=== PATIENT | female | born 1995 | race Caucasian/White ===

== ENCOUNTER 2017-09-09 20:06 | Emergency (ER) | payer SELFPAY ==
[~2017-09-09] VITALS: Ht 160 cm; Wt 47.0 kg
[~2017-09-09 20:06] MED LIST: CIPR500T4 PO
[2017-09-09 20:16] VITALS: BP 108/66; PULSE 88; RESP 16; TEMP 99.5; O2SAT 100
[2017-09-09 21:00] LABS: BILIRUBIN, URINE NEG (NEG); BLOOD, URINE LARGE (NEG); GLUCOSE,URINE NEG (NEG); KETONE, URINE TRACE mg/dL (NEG); NITRITE,URINE NEG (NEG); PH, URINE 5.5 (5.0-8.5); URINE COLOR BROWN (YELLW/STRAW); URINE LEUKOCYTE ESTERASE NEG (NEG)
[2017-09-09 21:01] LABS: BACTERIA, URINE FEW /hpf; RBC, URINE INNUM /hpf (0-3); WBC, URINE INNUM /hpf (0-5)
[2017-09-09] MEDS ORDERED: CIPR-9 PO (21:27)
[2017-09-09] MEDS ORDERED: DOXY100C PO (21:32)
--- NOTE | 2017-09-09 21:32 | PD ---
HPI Chief Complaint: Complaint Time Seen by Provider: 20:30 Travel History International Travel<30 days: No Contact w/Intl Traveler<30days: No Traveled to known affect area: No History of Present Illness HPI 21-year-old female presents to the emergency department by private transportation in the care of significant other for evaluation of possible urine infection with hematuria. Patient states she has had symptoms for the past couple weeks. Patient states symptoms were not typical of her urinary tract infections therefore was putting off being evaluated. Patient states no vaginal discharge or vaginal bleeding. Patient denies states she has not had a period in 5 years. Patient has history of hydronephrosis hydroureter denies kidney stones recurrent urinary tract infections bipolar disorder asthma ADHD and prior endocarditis. Patient states that she has not felt so well that she has missed getting her methadone and her methadone clinic but denies being an acute opiate withdrawal. Patient admits to prior history of sexually transmitted infection but denies symptoms at this time. PFSH Past Medical History Narrative Medical Bipolar disorder asthma ADHD endocarditis ureteral stricture hydronephrosis; substance abuse; nursing notes reviewed ADHD: Yes Asthma: Yes Autoimmune Disease: No Bipolar Disorder: Yes Anxiety: Yes Depression: Yes Cardiovascular Problems: Yes (ENDOCARDITIS 2012) Chest Pain: Yes Diabetes: No Diminished Hearing: No Gastrointestinal Disorders: No GERD: Yes Genitourinary: Yes (KIDNEY INFECTION) Hepatitis: Yes (C) Musculoskeletal: No Neurologic: No Psychiatric: Yes Respiratory: Yes Immunizations Current: Yes Renal Failure: Yes Thyroid Disease: No Tetanus Vaccination: > 5 Years Influenza Vaccination: No ?: Not Past Surgical History AICD: No Joint Replacement: No Pacemaker: No Other Surgery: No Social History Alcohol Use: Yes Tobacco Use: Yes (1 PPD) Substance Use: Yes (IV DILAUDID, crack ) Allergies-Medications (Allergen,Severity, Reaction): Coded Allergies: cefprozil (Unverified Allergy, Intermediate, RASH FROM CEFZIL (CEFPROZIL) , 01/24/17) STS FR CHILDHOOD Reported Meds & Prescriptions Reported Meds & Active Scripts Active Doxycycline Hyclate 100 Mg Cap 100 Mg PO BID Cipro (Ciprofloxacin HCl) 500 Mg Tab 500 Mg PO BID Narrative Medication methadone Review of Systems Except as stated in HPI: all other systems reviewed are Neg General / Constitutional: No: Fever, Chills HENT: No: Congestion Cardiovascular: No: Chest Pain or Discomfort Respiratory: No: Shortness of Breath Gastrointestinal: No: Nausea, Vomiting, Abdominal Pain Genitourinary: Positive: Frequency, Hematuria, No: Vaginal Bleeding Musculoskeletal: No: Myalgias, Arthralgias Skin: No Rash Neurologic: No: Weakness Psychiatric: No: Anxiety Hematologic/Lymphatic: No: Lymph Node Enlargement Physical Exam Narrative GENERAL: Well-developed well-nourished female in no acute distress no respiratory distress SKIN: Warm and dry. HEAD: Normocephalic. EYES: No scleral icterus. No injection or drainage. NECK: Supple, trachea midline. No JVD or lymphadenopathy. CARDIOVASCULAR: Regular rate and rhythm without murmurs, gallops, or rubs. RESPIRATORY: Breath sounds equal bilaterally. No accessory muscle use. GASTROINTESTINAL: Abdomen soft, non-tender, nondistended. Pelvic exam: Refused by patient MUSCULOSKELETAL: No cyanosis, or edema. BACK: Nontender without obvious deformity. No CVA tenderness. Data Data Last Documented VS Vital Signs Date Time Temp Pulse Resp B/P (MAP) Pulse Ox O2 Delivery O2 Flow Rate FiO2 09/09/17 20:16 99.5 88 16 108/66 (80) 100 Orders Orders Urinalysis - C+S If Indicated (09/09/17 20:30) Ed Urine Pregnancytest Poc (09/09/17 20:30) Gc And Chlamydia Pcr (09/09/17 20:30) Urine Culture (09/09/17 20:45) Doxycycline (Vibramycin) (09/09/17 21:45) Ed Discharge Order (09/09/17 21:34) Labs Laboratory Tests Test 09/09/17 20:45 Urine Color BROWN Urine Turbidity CLOUDY Urine pH 5.5 Urine Specific [place] GREATER/EQUAL 1.030 Urine Protein 100 mg/dL Urine Glucose (UA) NEG mg/dL Urine Ketones TRACE mg/dL Urine Occult Blood LARGE Urine Nitrite NEG Urine Bilirubin NEG Urine Urobilinogen 1.0 MG/DL Urine Leukocyte Esterase NEG Urine RBC INNUM /hpf Urine WBC INNUM /hpf Urine Squamous Epithelial Cells 6-8 /hpf Urine Bacteria FEW /hpf Microscopic Urinalysis Comment CULTURE INDICATED Chlamydia trachomatis DNA (PCR) NOT DETECTED Neisseria gonorrhoeae DNA (PCR) NOT DETECTED MDM Medical Decision Making Medical Screen Exam Complete: Yes Emergency Medical Condition: Yes Medical Record Reviewed: Yes Interpretation(s) poc hcg: negative ua: White blood cells red blood cells and innumerable positive bacteria culture indicated Differential Diagnosis Cystitis, hemorrhagic cystitis, UTI, pyelonephritis, obstructive uropathy, renal colic, renal mass, STI, , ectopic Narrative Course Patient agrees to provide a urine specimen does not want to have pelvic exam to evaluate for STI states she is not and she has not had a period in 5 years and think she has scar tissue secondary to previous STI's She does not want to have an white blood cells positive few bacteria culture is indicated Again this is discussed with patient undergoing pelvic exam and CT patient states that she will not have that done at this time she is agreeable to starting antibiotic and states should her symptoms worsen or not improve she will return and have further testing done at that time but is not willing to stay at this time states that she just wants to start an antibiotic and she needs to go to work. This is been discussed with her in detail regarding risk for kidney function versus kidney injury if she has obstructive uropathy or infection/pyelonephritis associated with obstructive uropathy. Patient reports she understands and is desirous of being discharged home. Patient given Doxycycline 100 mg 1 dose and will be discharged with prescription for doxycycline. Patient reports receives methadone therapy daily. Diagnosis Primary Impression: Cystitis Referrals: Primary Care Physician 2 days Patient Instructions: General Instructions Additional Instructions: Increase fluid hydration Complete course of antibiotic as prescribed; avoid sun exposure as this antibiotic increases risk for sunburn. Follow-up with your primary care provider Return to the emergency department for any concerns or change in condition Take acetaminophen every 4 hours for fever 100.4F or greater Take ibuprofen/Advil/Motrin every 6-8 hours as needed for fever 100.4F or greater Med/Other Pt SpecificInfo: Prescription(s) given Scripts Doxycycline Hyclate (Doxycycline Hyclate) 100 Mg Cap 100 MG PO BID for Infection, #14 CAP 0 Refills Prov: Monet Moreno MD 09/09/17 Disposition: 01 DISCHARGE HOME Condition: Stable Monet Moreno MD Sep 09, 2017 21:32
[2017-09-09] MEDS ORDERED: DOXYCYCLINE HYCLATE 100 MG CAP PO ONE (21:45)
== END 2017-09-09 21:47 | disposition home or self-care (01) ==
LOC: PHED 20:06
DX: N30.91 Cystitis, unspecified with hematuria (principal); B96.20 Unspecified Escherichia coli [E. coli] as the cause of diseases classified elsewhere; F31.9 Bipolar disorder, unspecified; J45.909 Unspecified asthma, uncomplicated; F90.9 Attention-deficit hyperactivity disorder, unspecified type; K21.9 Gastro-esophageal reflux disease without esophagitis; N19 Unspecified kidney failure; F17.200 Nicotine dependence, unspecified, uncomplicated; Z86.19 Personal history of other infectious and parasitic diseases
CPT/HCPCS: 81001; 84703; 87077; 87086; 87186; 87491; 87591; 99283